=== PATIENT | male | born 1965 | race African-American/Black ===

== ENCOUNTER 2020-06-17 23:32 | Emergency (ER) | payer BC, MEDICAID ==
[~2020-06-17] VITALS: Ht 188 cm; Wt 100.0 kg
[2020-06-18] MEDS ORDERED: SODIUM CHLORIDE 0.9% 1,000 ML IV ONE
[2020-06-18 00:32] LABS: BASOPHILS % 0.6 % (0.0-2.0); EOSINOPHILS % 1.2 % (0.0-5.0); HEMATOCRIT. 40.6 % (42.0-52.0); HEMOGLOBIN. 14.1 g/dL (14.0-18.0); LYMPHOCYTES % 31.9 % (20.0-50.0); MEAN CORPUSCULAR HEMOGLOBIN 28.8 pg (28.0-32.0); MEAN CORPUSCULAR VOLUME 82.7 fL (80.0-94.0); MEAN PLATELET VOLUME 9.1 fl (7.4-10.4); MONOCYTES % 9.3 % (2.0-8.0); PLATELET 244 x1000/uL (130-400); RED BLOOD CELL COUNT 4.91 mill/uL (4.7-6.1); RED CELL DISTRIBUTION WIDTH 14.2 % (11.6-14.6)
[2020-06-18 00:34] LABS: PARTIAL THROMBOPLASTIN TIME 22.4 sec (23.4-31.0); PROTHROMBIN TIME 10.8 sec (9.6-11.0)
[2020-06-18 00:37] LABS: CHLORIDE 101 mEq/L (98-107)
[2020-06-18 00:41] LABS: ETHANOL BLOOD < 10 mg/dL
[2020-06-18] MEDS ORDERED: NALOXONE HCL 0.4 MG/ML 1ML VIAL IV ONE (03:00)
[2020-06-18 04:11] LABS: BG BASE EXCESS -1.6 mmol/L (-2.0-2.0); BG CARBOXYHEMOGLOBIN 0.4 % (0.5-1.5); BG DEOXYHEMOGLOBIN 4.4 % (0.0-5.0); BG FRACTION INSPIRED OXYGEN 21; BG HCO3 ACT 23.6 mmol/L (22.0-26.0); BG METHEMOGLOBIN 0.1 % (0.0-1.5); BG OXYGEN SATURATION 95.6 % (92.0-98.5); BG OXYHEMOGLOBIN 95.1 % (94.0-97.0); BG PCO2 41.7 mmHg (35.0-45.0); BG PH 7.371 (7.350-7.450); BG PO2 80.6 mmHg (75.0-100.0); BG SAMPLE SITE RIGHT RADIAL; BG TOTAL HEMOGLOBIN 14.8 g/dL (12.0-18.0); BG VENT MODE ROOM AIR
[2020-06-18 08:11] VITALS: BP 98/56
== END 2020-06-18 08:20 | disposition short-term general hospital (02) ==
LOC: ER 23:32
DX: R41.82 Altered mental status, unspecified (principal); N28.9 Disorder of kidney and ureter, unspecified; E11.9 Type 2 diabetes mellitus without complications; I10 Essential (primary) hypertension; M79.7 Fibromyalgia
CPT/HCPCS: 36415; 36600; 70450; 71045; 80053; 80307; 80320; 80329; 82140; 82375; 82805; 83880; 84443; 84484; 85025; 85610; 85730; 93005; 96361; 96374; 99285; J2310; A4315; G0480